=== PATIENT | female | born 1950 | race Caucasian/White ===

== ENCOUNTER → 2017-11-08 | Outpatient (CLI) | payer OTHER ==
[~2017-11-08] MED LIST: CALCAVITD; CAT S CLAW; CEPH500 PO; MAGOXI400; OXYACE5T PO; RXOXYACE PO; STRONTIUM CHLORI1 GM; TAMS.4ER PO
== END ==
LOC: OLS 17:20
DX: A31.0 Pulmonary mycobacterial infection (principal)
CPT/HCPCS: 87015; 87070; 87116; 87206

== ENCOUNTER → 2018-01-11 | Outpatient (CLI) | payer OTHER ==
[2018-01-13 14:05] LABS: HPV Genotype 16 Not Detected (NOTDET); HPV Genotype 18 Not Detected (NOTDET)
[2018-01-23 13:03] LABS: HPV High Risk Other Not Detected (NOTDET)
== END | disposition home or self-care (01) ==
LOC: LAB SHORT 16:38 → OLS 16:38
PROVIDERS: Nurse Practitioner Women's Health
DX: Z12.4 Encounter for screening for malignant neoplasm of cervix (principal); Z91.89 Other specified personal risk factors, not elsewhere classified
CPT/HCPCS: 87624; G0123

== ENCOUNTER → 2018-02-02 | Outpatient (CLI) | payer OTHER | LOC: OLS 12:49 → LAB SHORT 12:49 | DX: A31.0 Pulmonary mycobacterial infection (principal) | CPT/HCPCS: 87015; 87116; 87206 ==

== ENCOUNTER 2018-11-06 11:36 | Day surgery (SDC) | payer OTHER ==
[~2018-11-06] VITALS: Ht 165.1 cm; Wt 53.4 kg
[~2018-11-06 11:36] MED LIST changes: +Cod Liver Oil1 EAC2 PO; +MAGNESIUM PO; -MAGOXI400; +[UNRECOGNIZED DRUG - OTHER]
[2018-11-06] MEDS ORDERED: MAGNESIUM CITR100 MG PO (12:41)
== END 2018-11-06 16:00 | disposition home or self-care (01) ==
LOC: ORSCSDS 11:36
PROVIDERS: Obstetrics & Gynecology Gynecology
PROC: 0UT04ZZ Resection of Right Ovary, Percutaneous Endoscopic Approach (ICD-10-PCS; principal; 2018-11-06 13:00)
PROC: 0UT74ZZ Resection of Bilateral Fallopian Tubes, Percutaneous Endoscopic Approach (ICD-10-PCS; principal; 2018-11-06 13:00)
DX: D27.0 Benign neoplasm of right ovary (principal); R00.2 Palpitations
CPT/HCPCS: 88305; J0330; J0690; J1100; J1885; J2250; J2405; J3010; J7120

== ENCOUNTER 2018-11-08 14:20 | Emergency (ER) | payer OTHER ==
[~2018-11-08] VITALS: Ht 162.6 cm; Wt 53.5 kg
[~2018-11-08 14:20] MED LIST changes: +MAGNESIUM CITR100 MG PO
[2018-11-08] MEDS ORDERED: XARELTO20 MG PO (16:56)
== END 2018-11-08 18:01 | disposition home or self-care (01) ==
LOC: ER 14:20
DX: I82.491 Acute embolism and thrombosis of other specified deep vein of right lower extremity (principal); Z79.899 Other long term (current) drug therapy
CPT/HCPCS: 93971; 99284-25

== ENCOUNTER → 2019-04-23 | Outpatient (CLI) | payer OTHER ==
[~2019-04-23] MED LIST changes: +XARELTO20 MG PO
[2019-04-25 15:07] LABS: HPV 16 Negative (Negative); HPV 18 Negative (Negative); HPV OTHER HR TYPES Negative (Negative)
== END | disposition home or self-care (01) ==
LOC: LAB 17:53 → LAB SHORT 17:53
PROVIDERS: Nurse Practitioner Women's Health
DX: Z12.4 Encounter for screening for malignant neoplasm of cervix (principal); R87.611 Atypical squamous cells cannot exclude high grade squamous intraepithelial lesion on cytologic smear of cervix (ASC-H); Z91.89 Other specified personal risk factors, not elsewhere classified
CPT/HCPCS: 87624; G0123

== ENCOUNTER 2019-05-21 16:34 | Emergency (ER) | payer OTHER ==
[~2019-05-21] VITALS: Ht 162.6 cm; Wt 52.2 kg
[2019-05-21 17:02] LABS: BASOPHILS ABSOLUTE AUTO 0.04 K/mm3 (0.00-0.23); BASOPHILS PERCENT AUTO 1 % (0-2); EOSINOPHILS ABSOLUTE AUTO 0.09 K/mm3 (0.00-0.68); EOSINOPHILS PERCENT AUTO 2 % (0-6); Hematocrit 39.5 % (33.0-51.0); Hemoglobin 13.1 g/dL (11.5-16.0); IMMATURE GRAN ABSOLUTE AUTO 0.01 K/mm3 (0.00-0.10); IMMATURE GRAN PERCENT AUTO 0 % (0-1); LYMPHOCYTES ABSOLUTE AUTO 0.73 K/mm3 (0.84-5.20); LYMPHOCYTES PERCENT AUTO 15 % (21-46); MONOCYTES ABSOLUTE AUTO 0.48 K/mm3 (0.16-1.47); MONOCYTES PERCENT AUTO 10 % (4-13); Mean Corpuscular HGB 30.7 pg (26.0-34.0); Mean Corpuscular HGB Conc 33.2 g/dL (31.5-36.5); Mean Corpuscular Volume 93 fL (80-100); Mean Platelet Volume 9.8 fL (9.1-12.4); NEUTROPHILS ABSOLUTE AUTO 3.68 K/mm3 (1.96-9.15); NEUTROPHILS PERCENT AUTO 73 % (41-73); Platelet Count 254 K/mm3 (150-400); RDW Standard Deviation 41.3 fL (35.1-46.3); Red Blood Cell Count 4.27 M/mm3 (3.80-5.20); White Blood Cell Count 5.03 K/mm3 (4.00-11.30)
[2019-05-21 17:08] LABS: Source, Urine Clean Catch
[2019-05-21 17:10] LABS: Alanine Aminotransfer (ALT/SGP 20 U/L (12-78); Albumin, Blood 3.4 g/dL (3.4-5.0); Alk Phos 46 U/L (50-136); Anion Gap 4 mmol/L (6-16); Aspartate Aminotrans (AST/SGOT 30 U/L (12-37); Bilirubin, Total 0.3 mg/dL (0.1-1.0); Blood Urea Nitrogen 19 mg/dL (8-24); Bun/Creatinine Ratio 26.4 (12.0-20.0); CO2, Blood 26 mmol/L (21-32); Calcium, Blood 8.9 mg/dL (8.5-10.1); Chloride, Blood 111 mmol/L (98-108); Creatinine, Blood 0.72 mg/dL (0.40-1.00); Globulin, Blood 3.4 g/dL (2.2-4.0); Glomerular Filtration Rate >60 (60-); Glucose, Blood 104 mg/dL (70-99); Potassium, Blood 3.7 mmol/L (3.5-5.5); Sodium, Blood 141 mmol/L (136-145); Total Protein, Blood 6.8 g/dL (6.4-8.2)
[2019-05-21 17:12] LABS: Bilirubin, Urine Neg (Neg); Blood, Urine Neg (Neg); Glucose Qualitative, Urine Neg (Neg); Ketones, Urine Neg (Neg); Leukocyte Esterase, Urine Neg (Neg); Nitrite, Urine Neg (Neg); Protein, Urine Neg (Neg); Urobilinogen, Urine NORM (Normal)
[2019-05-21 17:24] LABS: Appearance, Urine Clear (Clear); Color, Urine Yellow (P-Yellow)
== END 2019-05-21 18:45 | disposition home or self-care (01) ==
LOC: ER 16:34
PROVIDERS: Emergency Medicine
DX: R42 Dizziness and giddiness (principal)
CPT/HCPCS: 71046; 80053; 81003; 84484; 85025; 93005; 93010; 99284-25

== ENCOUNTER → 2019-05-27 | Outpatient (CLI) | payer OTHER | LOC: LAB EV 13:44 → LAB SHORT 13:44 | DX: M79.661 Pain in right lower leg (principal) | CPT/HCPCS: 85379 ==

== ENCOUNTER 2020-01-29 11:22 | Day surgery (SDC) | payer OTHER ==
[~2020-01-29] VITALS: Ht 162.6 cm; Wt 50.8 kg
--- NOTE | 2020-01-29 16:33 | NUR ---
"DAY SURGERY RN | HANDOFF TO ALEXIS MORRISON VSS. A/O. DISCHARGE INSTRUCTIONS AND RX GIVEN TO PATIENT. PAIN IS 3/10. INCENTIVE SPIROMETER GIVEN TO PATIENT. INSTRUCTED PATIENT ON USE. REPORT TO ALEXIS MORRISON."
--- NOTE | 2020-01-29 16:53 | NUR ---
PT DRESSED. Discharged via wheelchair to private car for ride home. ICE PACKS PROVIDED TO PT. ALL DISCHARGE PAPER WORK WITH PT. VERBALIZED SHE WILL DROP RX OFF AT PHARMACY, STATED SHE DID NOT FEEL LIKE SHE NEEDED A PAIN PILL PRIOR TO DC HOME.
== END 2020-01-29 16:54 | disposition home or self-care (01) ==
LOC: ORSCMMR 11:22 → ORD 13:00 → ORSCMMR 16:54
PROVIDERS: Podiatrist Foot & Ankle Surgery
PROC: 0QSJ04Z Reposition Right Fibula with Internal Fixation Device, Open Approach (ICD-10-PCS; principal; 2020-01-29 13:00)
DX: S82.61XA Displaced fracture of lateral malleolus of right fibula, initial encounter for closed fracture (principal); J45.909 Unspecified asthma, uncomplicated
CPT/HCPCS: C1713; J0690; J1100; J1885; J2250; J2370; J2405; J2704; J3010; J7120

== ENCOUNTER → 2020-03-17 | Outpatient (CLI) | payer OTHER ==
[2020-03-17 10:18] LABS: Source, Urine Clean Catch
[2020-03-17 11:51] LABS: Appearance, Urine Clear (Clear); Bilirubin, Urine Neg (Neg); Blood, Urine 2+ (Neg); Color, Urine Yellow (P-Yellow); Glucose Qualitative, Urine Neg (Neg); Ketones, Urine Neg (Neg); Leukocyte Esterase, Urine Trace (Neg); Nitrite, Urine Neg (Neg); Protein, Urine Neg (Neg); Urobilinogen, Urine NORM (Normal)
[2020-03-17 11:55] LABS: Bacteria Few /hpf; Squamous Epithelial Cells Rare /hpf (Few)
== END | disposition home or self-care (01) ==
LOC: LAB SHORT 10:17 → LAB 10:17 → LAB FUT 03-17 09:10
PROVIDERS: Internal Medicine
DX: R30.0 Dysuria (principal)
CPT/HCPCS: 81001

== ENCOUNTER → 2020-08-26 | Outpatient (CLI) | payer OTHER | END | disposition home or self-care (01) | LOC: LAB SHORT 13:37 → LAB 13:37 | DX: A31.0 Pulmonary mycobacterial infection (principal) | CPT/HCPCS: 87102; 87106 ==

== ENCOUNTER → 2020-09-07 | Outpatient (CLI) | payer OTHER | END | disposition home or self-care (01) | LOC: LAB 13:37 → LAB SHORT 13:37 | DX: A31.0 Pulmonary mycobacterial infection (principal) | CPT/HCPCS: 87015; 87116; 87206 ==

== ENCOUNTER → 2021-09-09 | Outpatient (CLI) | payer OTHER ==
[2021-09-09 11:22] LABS: Source, Urine Clean Catch
[2021-09-09 13:33] LABS: Appearance, Urine Clear (Clear); Bilirubin, Urine Neg (Neg); Blood, Urine 2+ (Neg); Color, Urine Yellow (P-Yellow); Glucose Qualitative, Urine Neg (Neg); Ketones, Urine Neg (Neg); Leukocyte Esterase, Urine Neg (Neg); Nitrite, Urine Neg (Neg); Protein, Urine Neg (Neg); Urobilinogen, Urine NORM (Normal)
[2021-09-09 15:09] LABS: Bacteria Rare /hpf; Red Blood Cells, Urine 0-2 /hpf (0-2); Squamous Epithelial Cells Rare /hpf (Few); White Blood Cells, Urine Rare /hpf (0-5)
== END | disposition home or self-care (01) ==
LOC: LAB 11:21 → LAB SHORT 11:21
PROVIDERS: Internal Medicine
DX: R30.0 Dysuria (principal)
CPT/HCPCS: 81001

== ENCOUNTER 2021-11-15 07:59 | Day surgery (SDC) | payer OTHER ==
[~2021-11-15] VITALS: Ht 162.6 cm; Wt 50.9 kg
[~2021-11-15 07:59] MED LIST changes: +ALBU90OI INH; +CALCIUM CITRAT200 MG PO; +CAT'S CLAW PO; +FISH OIL 1,2001 EAC4 PO; +MAGNESIUM250 MG PO; +[UNRECOGNIZED DRUG - OTHER]
== END 2021-11-15 10:31 | disposition home or self-care (01) ==
LOC: ORSCSDS 07:59
PROVIDERS: Student in an Organized Health Care Education/Training Program
PROC: 0DJD8ZZ Inspection of Lower Intestinal Tract, Via Natural or Artificial Opening Endoscopic (ICD-10-PCS; principal; 2021-11-15 09:15)
DX: Z12.11 Encounter for screening for malignant neoplasm of colon (principal); Z86.010 Personal history of colon polyps; K57.30 Diverticulosis of large intestine without perforation or abscess without bleeding; K64.8 Other hemorrhoids; Z79.899 Other long term (current) drug therapy
CPT/HCPCS: J2704; J7120